=== PATIENT | male | born 1950 | race Caucasian/White ===

== ENCOUNTER 2018-06-01 13:49 | Inpatient (IN) ==
[2018-06-01] MEDS ORDERED: hydrOXYzine pamoate 25 MG CAPSULE PO ONE (14:28)
--- NOTE | 2018-06-01 14:38 | Emergency Department Note ---
Disposition Clinical Impression: Cellulitis Qualifiers: Site of cellulitis: unspecified site Qualified Code(s): L03.90 - Cellulitis, unspecified Disposition: Admitted As Inpatient Condition: Good Referrals: Dhaval Pichardo DO [Primary Care Provider] - Forms: ED Satisfaction Letter Skin/Abscess/FB HPI Chief complaint: ED Skin/Abscess/Foreign Body Stated complaint: "bite to chest" Time Seen by Provider: 06/01/18 14:04 Source: patient Mode of arrival: private vehicle Limitations: no limitations Nursing Notes Reviewed: Yes Vital Signs Reviewed: Yes HPI Narrative: 67-year-old male history of diabetes who presents to the ER with a chief complaint of concern for mastoiditis. Patient states on May 21 he was bitten by an insect. States that it looked okay the next day but then started to become red. He was started on Bactrim by his primary care provider and is currently on day 9. He states that it continued to worsen in its appearance so they added Keflex 3 days ago. He states today he again saw his primary care provider who referred him to the emergency department due to concern for worsening cellulitis. He reports compliance with his antibiotics during this time. No fevers but he does report that he has been breaking out in a sweat after taking Tylenol. No nausea vomiting. No other complaints. Pt Subjective Complaint: insect bite/sting Onset (ago): week(s) Location: chest Improves with: none Worsens with: none Context: witnessed insect bite Associated symptoms: Reports: chills. Denies: fever, nausea, vomiting Treatments prior to arrival: antibiotic Allergies Allergy/AdvReac Type Severity Reaction Status Date / Time No Known Allergies Allergy Unverified 12/26/15 07:37 All systems ED: reviewed and negative except as stated. Constitutional: Reports: chills. Denies: fever Gastrointestinal: Denies: nausea, vomiting Integumentary: Reports: rash, pruritus Past Medical History - Past Medical History Attestation: Yes The following information was validated with the patient. Source: patient Medical history: Reports: diabetes, hypertension, kidney stones, other Surgical history: Reports: other Psychiatric history: Reports: no psych history - Social History Smoking Status: Former smoker Smokeless Tobacco Status: No Alcohol use: Reports: occasionally Drug use: Reports: none Physical Exam - General Limitations: no limitations General appearance: alert, in no apparent distress - Head Head exam: atraumatic, normocephalic - Eye Eye exam: Present: normal appearance - ENT ENT exam: normal exam - Neck Neck exam: Present: normal inspection - Chest Chest inspection: Present: normal inspection, symmetric chest wall rise, other ( Right chest wall tenderness as well as a well demarcated erythematous area over the right breast. Blanchable. Warm to touch. No expressible discharge.) - Respiratory Respiratory exam: Present: normal lung sounds bilaterally - Cardiovascular Cardiovascular exam: Present: regular rate, normal rhythm, normal heart sounds - Extremities Exam Extremities exam: Present: normal inspection, full ROM - Expanded Upper Extremity Exam Shoulder exam: Present: normal inspection, full ROM Arm exam: Present: normal inspection, full ROM Elbow exam: Present: normal inspection, full ROM Forearm/Wrist exam: Present: normal inspection, full ROM Hand exam: Present: normal inspection, full ROM - Expanded Lower Extremity Exam Hip/Pelvis exam: Present: normal inspection, full ROM Upper leg exam: Present: normal inspection, full ROM Knee exam: Present: normal inspection, full ROM Lower leg exam: Present: normal inspection, full ROM Ankle exam: Present: normal inspection, full ROM Foot/toe exam: Present: normal inspection, full ROM - Skin Skin exam: Present: erythema Course Course Narrative: Patient seen and examined. Vital signs reviewed. Plan for basic labs, Atarax for pruritus and reevaluation. - Reevaluation(s) Reevaluation #1: Discussed findings with the patient. Agreeable with admission. Vancomycin ordered for cellulitis. Vital Signs Temperature 97.4 F L 06/01/18 13:51 Pulse Rate 76 06/01/18 13:51 Respiratory Rate 20 06/01/18 13:51 Blood Pressure 137/94 06/01/18 13:51 O2 Sat by Pulse Oximetry 96 06/01/18 13:51 Temperature 97.4 F L 06/01/18 13:51 Pulse Rate 76 06/01/18 13:51 Respiratory Rate 20 06/01/18 13:51 Blood Pressure 137/94 06/01/18 13:51 O2 Sat by Pulse Oximetry 96 06/01/18 13:51 Oxygen Delivery Oxygen Delivery Room Air Skin/Abscess/Foreign Body - MDM Narrative Medical decision making narrative: 67-year-old male with cellulitis of the right breast. Started on May 21 after a bug bite. He is afebrile here. Labs reviewed with no acute derangements. Failed outpatient therapy. Admission with vancomycin for worsening cellulitis. - Lab Data Lab results reviewed: Yes I reviewed the patient's lab results. Result diagrams: 06/01/18 14:37 06/01/18 14:37 Lab Results 06/01/18 06/01/18 Range/Units 14:37 14:37 WBC 6.6 (4.3-11.1) K/mcL RBC 5.15 (4.19-5.50) M/mcL Hgb 15.0 (12.9-16.9) g/dL Hct 44.5 (37.5-50.1) % MCV 86.4 (83.0-100.0) fL MCH 29.1 (28.0-33.3) pg MCHC 33.7 (31.6-35.5) g/dL RDW 13.1 (11.5-14.5) % Plt Count 235 (140-400) K/mcL MPV 11.3 (9.4-12.4) fL Immature Gran % 0.5 (0-4) % Seg Neutrophils % 63.5 % Lymphocytes % 24.8 % Monocytes % 8.6 % Eosinophils % 2.0 % Basophils % 0.6 % Neutrophils # 4.2 (1.6-8.9) K/mcL Lymphocytes # 1.6 (0.6-4.6) K/mcL Monocytes # 0.6 (0.0-1.3) K/mcL Eosinophils # 0.1 (0.0-0.6) K/mcL Basophils # 0.0 (0.0-0.2) K/mcL Sodium 137 (136-145) mEq/L Potassium 4.1 (3.5-5.1) mEq/L Chloride 104 (98-107) mEq/L Carbon Dioxide 22 L (23-29) mEq/L BUN 19 (8-23) mg/dL Creatinine 1.20 (0.70-1.30) mg/dL Est GFR ( Amer) > 60 (> 60) Est GFR (Non-Af Amer) > 60 (> 60) BUN/Creatinine Ratio 16 (6-26) Glucose 128 H (70-105) mg/dL Calculated Osmolality 288 (280-300) Calcium 9.6 (8.6-10.3) mg/dL S.B.A.R. - S.B.A.R. Situation: Demographics, MOA Background: Presenting Complaint, Relevant PMH, Meds, & Allergies Assessment: Course and respsone to treatment, Exam Concerns, Patient/Family Expectation, Pertinant Lab Results Recommendation: Barrier(s) to disposition, Recommendation based on pending studies, treatments, or consults S.B.A.RTyler Report Given to: Dr. Karl Neal Repor Time: 15:26
--- NOTE | 2018-06-01 14:43 | Emergency Department Note ---
Disposition Clinical Impression: Cellulitis Disposition: Admitted As Inpatient Condition: Good Referrals: Dhaval Pichardo DO [Primary Care Provider] - Forms: ED Satisfaction Letter General Adult HPI - General Chief complaint: ED Skin/Abscess/Foreign Body Stated complaint: "bite to chest" Time Seen by Provider: 06/01/18 14:04 Source: patient Mode of arrival: private vehicle Limitations: no limitations Nursing Notes Reviewed: Yes Vital Signs Reviewed: Yes - History of Present Illness Pain Scale: 0 - Related Data Allergies Allergy/AdvReac Type Severity Reaction Status Date / Time No Known Allergies Allergy Unverified 12/26/15 07:37 Constitutional: Reports: chills. Denies: fever Gastrointestinal: Denies: nausea, vomiting Integumentary: Reports: rash, pruritus Past Medical History - Past Medical History Medical history: Reports: diabetes, hypertension, kidney stones, other Surgical history: Reports: other Psychiatric history: Reports: no psych history - Social History Smoking Status: Former smoker Smokeless Tobacco Status: No Alcohol use: Reports: occasionally Drug use: Reports: none Physical Exam - General Limitations: no limitations General appearance: alert, in no apparent distress Course Vital Signs Temperature 97.4 F L 06/01/18 13:51 Pulse Rate 76 06/01/18 13:51 Respiratory Rate 20 06/01/18 13:51 Blood Pressure 137/94 06/01/18 13:51 O2 Sat by Pulse Oximetry 96 06/01/18 13:51 Temperature 97.4 F L 06/01/18 13:51 Pulse Rate 76 06/01/18 13:51 Respiratory Rate 20 06/01/18 13:51 Blood Pressure 137/94 06/01/18 13:51 O2 Sat by Pulse Oximetry 96 06/01/18 13:51 Oxygen Delivery Oxygen Delivery Room Air Medical Decision Making - [facility] Narrative Medical decision making narrative: 1537 hrs. started him on vancomycin. Question whether this is inflammatory or if this is infectious. His white count, he does not have a fever. He has been on to get antibiotics and this is not getting better. Think it prudent to given bring him in the hospital this time put him on antibiotics and then also do something to help control the itch. Hospitalist is in agreement with this plan as is the patient. - Lab Data Result diagrams: 06/01/18 14:37 07/05/18 14:37 Lab Results 06/01/18 06/01/18 Range/Units 14:37 14:37 WBC 6.6 (4.3-11.1) K/mcL RBC 5.15 (4.19-5.50) M/mcL Hgb 15.0 (12.9-16.9) g/dL Hct 44.5 (37.5-50.1) % MCV 86.4 (83.0-100.0) fL MCH 29.1 (28.0-33.3) pg MCHC 33.7 (31.6-35.5) g/dL RDW 13.1 (11.5-14.5) % Plt Count 235 (140-400) K/mcL MPV 11.3 (9.4-12.4) fL Immature Gran % 0.5 (0-4) % Seg Neutrophils % 63.5 % Lymphocytes % 24.8 % Monocytes % 8.6 % Eosinophils % 2.0 % Basophils % 0.6 % Neutrophils # 4.2 (1.6-8.9) K/mcL Lymphocytes # 1.6 (0.6-4.6) K/mcL Monocytes # 0.6 (0.0-1.3) K/mcL Eosinophils # 0.1 (0.0-0.6) K/mcL Basophils # 0.0 (0.0-0.2) K/mcL Sodium 137 (136-145) mEq/L Potassium 4.1 (3.5-5.1) mEq/L Chloride 104 (98-107) mEq/L Carbon Dioxide 22 L (23-29) mEq/L BUN 19 (8-23) mg/dL Creatinine 1.20 (0.70-1.30) mg/dL Est GFR ( Amer) > 60 (> 60) Est GFR (Non-Af Amer) > 60 (> 60) BUN/Creatinine Ratio 16 (6-26) Glucose 128 H (70-105) mg/dL Calculated Osmolality 288 (280-300) Calcium 9.6 (8.6-10.3) mg/dL Attestation Statement - Attestation Attestation: This documentation is done with the assistance of Dragon dictation. Despite efforts made to ensure accuracy, there may be inaccuracies in personnel and payroll technician or spelling and typographical errors. I examined this patient and my medical decision-making was reviewed with the Resident Physician. I agree with the documented findings, disposition and treatment plan as described except to the extent set forth below. Patient seen and evaluated Dr. Bashir and myself, I agree with his evaluation management plan, supervise care the patient stay. Patient had 9 days ago got bit by something he thinks an insect on his right breast. He started having some swelling. They put him on Bactrim he is been on it for 9 days and Keflex for last 3 days and is not getting better. He says it itches a lot is not painful no fevers. This looks inflammatory but because he is diabetic this could be infectious returning his CBC start him on some Atarax and then reassess. He may need admission. He is in agreement with plan.
[2018-06-01 14:47] LABS: Basophils % 0.6 %; Eosinophils # 0.1 K/mcL (0.0-0.6); Hematocrit 44.5 % (37.5-50.1); Immature Granulocytes % 0.5 % (0-4); Lymphocytes # 1.6 K/mcL (0.6-4.6); Lymphocytes % 24.8 %; Mean Corpuscular HGB Conc 33.7 g/dL (31.6-35.5); Mean Corpuscular Hemoglobin 29.1 pg (28.0-33.3); Mean Corpuscular Volume 86.4 fL (83.0-100.0); Mean Platelet Volume 11.3 fL (9.4-12.4); Monocytes # 0.6 K/mcL (0.0-1.3); Monocytes % 8.6 %; Neutrophils # 4.2 K/mcL (1.6-8.9); Platelet Count 235 K/mcL (140-400); Red Blood Count 5.15 M/mcL (4.19-5.50); Red Cell Distribution Width 13.1 % (11.5-14.5); Segmented Neutrophils % 63.5 %
[2018-06-01 15:06] LABS: BUN/Creatinine Ratio 16 (6-26); Blood Urea Nitrogen 19 mg/dL (8-23); Calcium 9.6 mg/dL (8.6-10.3); Carbon Dioxide 22 mEq/L (23-29); Chloride 104 mEq/L (98-107); Glucose 128 mg/dL (70-105); Osmolality,Calculated 288 (280-300); Potassium 4.1 mEq/L (3.5-5.1); Sodium 137 mEq/L (136-145); eGFR For African Americans > 60 (> 60); eGFR For Non-African Americans > 60 (> 60)
[2018-06-01] MEDS ORDERED: Vancomycin 1,750 MG in 0.9 % Sodium Chloride 250 ML IVPB ONE (15:09)
[2018-06-01] MEDS ORDERED: Naloxone 0.4 MG/ML INJ IVP PRN (16:51)
[2018-06-01] MEDS ORDERED: *HR* Dextrose 50 % in Water (Syg) 50 ML SYRINGE IVP PRN (17:00)
[2018-06-01] MEDS ORDERED: D5% in Water 1,000 ML IVC PRN (17:00)
[2018-06-01] MEDS ORDERED: Dextrose Gel 15 GM/37.5 ML TUBE PO PRN ×2 (17:00)
--- NOTE | 2018-06-01 17:58 | Internal Med History&Physical ---
Date of Encounter: 06/01/18 Time of Encounter: 16:00 Internal Medicine - H&P: HPI Chief complaint: Pain/itching/swelling of right breast Admitted From: Emergency Dept Plans for Post Hospital Care: Home History of present illness: Mr. Beth is a 67 year old male w/PMH of diabetes controlled w/oral anti- hyperglycemic medications, HTN, GERD, and kidney stones presents from the ED w/ CC of pain, swelling, and itching of the right breast. Pt. reports he was at a baseball game on May 21 and was bitten by an unknown insect under his shirt. Pt. states he began to have itching and swelling to the area and was placed on PO Bactrim by PCP. Therapy failed and was placed on PO Keflex. Sx worsened. Area marked by PCP shows extension of erythema and edema past original markings. Denies any allergies. Reports sweating and itching after taking Tylenol but denies recent illness, fever, chills, nausea, vomiting, changes in vision, headache, chest pain, shortness of breath, abdominal pain, diarrhea, constipation, numbness, tingling, dizziness, lightheadedness, pre-syncope, or syncope. Past Med Surg Social Fam HX - Past Medical History Source: patient, old records reviewed, obtained from family Medical history: diabetes, GERD, hypertension, kidney stones, other Additional medical history: IBS, BPH, Brights disease age 11 Psychiatric history: no psych history - Past Surgical History Surgical History: other Additional surgical history: lithrotripsy - Social History Smoking Status: Former smoker Packs per day: 2 PPD - Reports quitting in 1983 Smokeless Tobacco Status: No Alcohol use: occasionally Drug use: none Current living situation: Home, With Family Activity Level: Independent ambulation Recent Out of Country Travel Within the Last 8 Weeks: No Exposure or Possible Exposure to Illness During Travel: No - Family History Father Race: Family Member Ethnicity: Non- Living Status: Age at : 67 Cause of : [place] Hx Family Cardiac Disorders: Yes (MO) Hx Family Endocrine Disorder: Yes (DM) Mother Race: Family Member Ethnicity: Non- Living Status: Still Living Hx Family Cardiac Disorders: Yes (HTN) Internal Medicine - H&P: Meds Aspirin Enteric Coated [Aspirin EC] 81 mg PO DAILY 06/01/18 [History] Atenolol [Tenormin] 25 mg PO DAILY 06/01/18 [History] Doxazosin [Cardura] 4 mg PO DAILY 06/01/18 [History] Glimepiride [Amaryl] 4 mg PO DAILY 06/01/18 [History] Metformin HCl [Metformin HCl] 1,000 mg PO DAILY 06/01/18 [History] Omeprazole [PriLOSEC] 40 mg PO DAILY 06/01/18 [History] Potassium Chloride [Klor-Con Sprinkle] 10 meq PO DAILY 06/01/18 [History] Triamterene/Hydrochlorothiazid [Dyazide 37.5-25 Capsule] 1 cap PO DAILY [History] cephALEXin [Keflex] 500 mg PO BID 06/01/18 [History] 3 Allergy/AdvReac Type Severity Reaction Status Date / Time No Known Allergies Allergy Verified 06/01/18 16:26 All Systems PM: A 10-system review of systems was performed and is negative for pertinent findings except as documented above in the HPI. - Constitutional Constitutional: as per HPI, excessive sweating (After taking Tylenol), no chills , no fever(s), no night sweats - EENT Eyes: no change in vision, no discharge, no pain, no photophobia Ears: no ear discharge, no ear pain, no tinnitus Nose, mouth and throat: no dysphagia, no nasal discharge, no neck pain, no sore throat - Breasts Breasts: as per HPI, pain (Right breast), swelling (Right breast) - Cardiovascular Cardiovascular ROS IM: no chest pain, no diaphoresis, no dyspnea, no lightheadedness, no palpitations, no syncope - Respiratory Respiratory: no cough, no dyspnea, no wheezing, no excessive phlegm production - Gastrointestinal Gastrointestinal: no abdominal pain, no diarrhea, no hematemesis, no hematochezia, no melena, no nausea, no vomiting - Genitourinary Genitourinary ROS male: as per HPI - Musculoskeletal Musculoskeletal ROS IM: no numbness, no tingling - Integumentary Integumentary IM: no rash, no unusual bruising - Neurological Neurological ROS: no confusion, no convulsions, no focal weakness, no numbness, no tingling, no tremor(s) - Psychiatric Psychiatric: as per HPI - Endocrine Endocrine IM: as per HPI - Hematologic/Lymphatic Hematologic/Lymphatic: no easy bruising - Allergic/Immunologic Allergic/Immunologic: as per HPI - Constitutional Vitals: Temp Pulse Resp BP Pulse Ox 97.5 F L 70 16 101/70 95 06/01/18 16:32 06/01/18 16:32 06/01/18 16:32 06/01/18 16:32 06/01/18 16:32 General appearance: Present: cooperative, A&O X 3, pleasant, no acute distress, obese, answers questions appropriately - Head Head exam: Present: atraumatic, normocephalic - Eye Eye exam: Present: PERRL, conjuntiva pink, sclera anicteric Pupils: Present: PERRL - ENT ENT exam: Present: normal exam - Neck Neck exam general surgery: Present: normal inspection, supple, trachea midline. Absent: lymphadenopathy - Respiratory Respiratory exam: Present: CTAB. Absent: accessory muscle use, rales, rhonchi, wheezes - Cardiovascular Cardiovascular exam: Present: RRR, +S1, +S2. Absent: diastolic murmur, gallop, rubs, systolic murmur - GI/Abdominal GI/Abdominal exam: Present: normal bowel sounds, soft, no peritoneal signs. Absent: distended, tenderness - Rectal Rectal exam: Present: deferred - Additional comments: exam deferred. - Extremities Exam Extremities exam: Present: warm, radial pulses palpable and symmetrical. Absent : calf tenderness, cyanotic, pedal edema - Back Exam Back exam: Present: normal inspection - Neurological Exam Neurological exam: Present: CN II-XII intact, oriented X3, no focal deficits. Absent: pronater drift, facial droop, speech deficit - Psychiatric Psychiatric exam: Present: normal affect, normal mood - Skin Skin exam: Present: dry, intact Internal Med - H&P Results - Labs CBC & Chem 7: 06/01/18 14:37 06/01/18 14:37 - Assessment and plan (1) Cellulitis Current Visit: Yes Status: Acute Assessment and plan: Acute cellulitis of the right breast. Pt. reports he was at a baseball game on May 21 and was bitten by an unknown insect under his shirt. Pt. states he began to have itching and swelling to the area and was placed on PO Bactrim by PCP. Therapy failed and was placed on PO Keflex. Sx worsened. Area marked by PCP shows extension of erythema and edema past original markings. Pt. denies any allergies. Area is blanchable and warm to touch. No discharge. Stair-step pain medications for pain mgmt. IVP Benadryl 25 mg Q6HR PRN for itching. IVPB Vancomycin w/Pharmacy dosing and Zosyn 3.375 gm Q8HR for infection coverage. Pt. does not currently meet sepsis criteria w/WBC of 6.6, temp of 97.5F, RR of 16, BP of 137/94, SpO2 of 95% on RA. HR 76 on admission. Lactic acid ordered. Pt. discussed w/Dr. Barajas who agrees w/plan of care. Pt. is moderate risk for further morbidity and infection based on current cellulitis w/spreading infection requiring IV abx, failure of OP abx therapy x2, and risk factors. Inpatient. Qualifiers: Site of cellulitis: other site Qualified Code(s): L03.818 - Cellulitis of other sites (2) Itching Current Visit: Yes Status: Acute Assessment and plan: Acute itching and pain of the right breast. Stair-step pain medications for pain mgmt. Benadryl IVP 25 mg Q6HR PRN for itching. (3) Diabetes Current Visit: Yes Status: Chronic Assessment and plan: Hx of chronic diabetes controlled w/oral anti-hyperglycemic medications. Hold patient's glimepiride and metformin and administer low-dose correction insulin sliding scale with hypoglycemic protocol. BG checks before meals at bedtime. A1c in a.m. labs. Qualifiers: Diabetes mellitus type: type 2 Diabetes mellitus bell cleaner insulin use: without bell cleaner use Diabetes mellitus complication status: with unspecified complications Qualified Code(s): E11.8 - Type 2 diabetes mellitus with unspecified complications (4) HTN (hypertension) Current Visit: Yes Status: Chronic Assessment and plan: Hx of chronic HTN. Monitor pt. and VS. Continue pts. Dyazide, Cardura, and atenolol. Qualifiers: Hypertension type: essential hypertension Qualified Code(s): I10 - Essential (primary) hypertension (5) GERD (gastroesophageal reflux disease) Current Visit: Yes Status: Chronic Assessment and plan: Hx of chronic GERD. IVP Zofran 4 mg Q6HR PRN for N/V. Continue pts. PO Prilosec. Qualifiers: Esophagitis presence: esophagitis presence not specified Qualified Code(s) : K21.9 - Gastro-esophageal reflux disease without esophagitis (6) DVT prophylaxis Current Visit: Yes Status: Acute Assessment and plan: Heparin 5,000 units SQ Q8HR for DVT prophylaxis. Monitor pt. for signs of bleeding. - Time Spent With Patient Total time spent is greater than 50% in coordination of care (as documented) at patient's floor/unit and/or counseling patient: Greater than 35 minutes
[2018-06-01] MEDS ORDERED: Ondansetron 4 MG/2 ML VIAL IVP PRN (18:05)
[2018-06-01] MEDS: 0.9 % Sodium Chloride 1,000 ML IVC SCH (19:01)
[2018-06-01] MEDS: Piperacillin/Tazobactam 3.375 GM in 0.9 % Sodium Chloride Mini Bag 100 ML IVPB SCH ×2 (19:06→23:39)
[2018-06-01] MEDS ORDERED: 0.9 % Sodium Chloride 1,000 ML IVC ONE ×2 (19:09→20:33)
[2018-06-01] MEDS: Insulin LISPRO 300 UNITS/3 ML VIAL SQ SCH (21:32)
[2018-06-01] MEDS: *HR* Heparin 5,000 UNIT/ML VIAL SQ SCH (23:39)
[2018-06-02 01:46] LABS: Basophils % 0.4 %; Eosinophils # 0.2 K/mcL (0.0-0.6); Eosinophils % 2.5 %; Hematocrit 39.3 % (37.5-50.1); Immature Granulocytes % 0.4 % (0-4); Lymphocytes # 1.9 K/mcL (0.6-4.6); Mean Corpuscular HGB Conc 33.1 g/dL (31.6-35.5); Mean Corpuscular Hemoglobin 28.7 pg (28.0-33.3); Mean Corpuscular Volume 86.8 fL (83.0-100.0); Mean Platelet Volume 11.1 fL (9.4-12.4); Monocytes # 0.7 K/mcL (0.0-1.3); Monocytes % 9.8 %; Neutrophils # 4.1 K/mcL (1.6-8.9); Platelet Count 213 K/mcL (140-400); Red Blood Count 4.53 M/mcL (4.19-5.50); Red Cell Distribution Width 13.2 % (11.5-14.5); Segmented Neutrophils % 59.9 %
[2018-06-02 02:07] LABS: Alanine Aminotransferase 31 Units/L (7-52); Albumin 3.6 g/dL (3.5-5.7); Albumin/Globulin Ratio 1.5 (1.1-2.2); Alkaline Phosphatase 56 Units/L (34-104); Aspartate Amino Transferase 21 Units/L (13-39); BUN/Creatinine Ratio 13 (6-26); Bilirubin,Total 0.5 mg/dL (0.3-1.0); Blood Urea Nitrogen 16 mg/dL (8-23); Calcium 8.4 mg/dL (8.6-10.3); Carbon Dioxide 21 mEq/L (23-29); Chloride 108 mEq/L (98-107); Chol/HDL Ratio 5.3 (0-4.9); Cholesterol 127 mg/dL (< 200); Globulin 2.4 g/dL (2.4-3.5); Glucose 124 mg/dL (70-105); HDL Cholesterol 24 mg/dL (40-59); LDL Cholesterol,Calculated 72 mg/dL (0-99); Magnesium 1.8 mg/dL (1.6-2.6); Osmolality,Calculated 289 (280-300); Sodium 138 mEq/L (136-145); Triglycerides 155 mg/dL (< 150); eGFR For African Americans > 60 (> 60); eGFR For Non-African Americans 60 (> 60)
[2018-06-02] MEDS: Insulin LISPRO 300 UNITS/3 ML VIAL SQ SCH ×4 (07:36→21:06)
[2018-06-02] MEDS: *HR* Heparin 5,000 UNIT/ML VIAL SQ SCH (07:53)
[2018-06-02] MEDS: Aspirin Enteric Coated 81 MG Tablet PO SCH (07:53)
[2018-06-02] MEDS: 0.9 % Sodium Chloride 1,000 ML IVC SCH ×2 (07:53→21:02)
[2018-06-02] MEDS: Piperacillin/Tazobactam 3.375 GM in 0.9 % Sodium Chloride Mini Bag 100 ML IVPB SCH ×2 (07:54→16:10)
[2018-06-02] MEDS: *HR* Metformin 500 MG TABLET PO SCH (11:54)
[2018-06-02] MEDS: *HR* Glimepiride 4 MG TABLET PO SCH (11:55)
[2018-06-02] MEDS: Ibuprofen 400 MG TABLET PO PRN (16:15)
--- NOTE | 2018-06-02 17:35 | Electrocardiograph Report ---
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
[2018-06-02 18:46] LABS: Estimated Average Glucose 186 mg/dl; Hemoglobin A1C 8.1 %
[2018-06-03] MEDS: Piperacillin/Tazobactam 3.375 GM in 0.9 % Sodium Chloride Mini Bag 100 ML IVPB SCH ×2 (00:25→10:08)
[2018-06-03] MEDS: 0.9 % Sodium Chloride 1,000 ML IVC SCH (04:17)
[2018-06-03 05:27] LABS: Basophils % 0.4 %; Eosinophils # 0.2 K/mcL (0.0-0.6); Eosinophils % 3.8 %; Hematocrit 37.5 % (37.5-50.1); Hemoglobin 12.3 g/dL (12.9-16.9); Immature Granulocytes % 0.2 % (0-4); Lymphocytes # 1.4 K/mcL (0.6-4.6); Lymphocytes % 32.1 %; Mean Corpuscular HGB Conc 32.8 g/dL (31.6-35.5); Mean Corpuscular Hemoglobin 28.3 pg (28.0-33.3); Mean Corpuscular Volume 86.2 fL (83.0-100.0); Mean Platelet Volume 11.3 fL (9.4-12.4); Monocytes # 0.5 K/mcL (0.0-1.3); Monocytes % 10.8 %; Neutrophils # 2.3 K/mcL (1.6-8.9); Platelet Count 211 K/mcL (140-400); Red Blood Count 4.35 M/mcL (4.19-5.50); Red Cell Distribution Width 13.3 % (11.5-14.5); Segmented Neutrophils % 52.7 %
[2018-06-03 05:44] LABS: Alanine Aminotransferase 28 Units/L (7-52); Albumin 3.7 g/dL (3.5-5.7); Albumin/Globulin Ratio 1.6 (1.1-2.2); Alkaline Phosphatase 52 Units/L (34-104); Aspartate Amino Transferase 22 Units/L (13-39); BUN/Creatinine Ratio 13 (6-26); Bilirubin,Total 0.5 mg/dL (0.3-1.0); Blood Urea Nitrogen 13 mg/dL (8-23); Calcium 8.5 mg/dL (8.6-10.3); Carbon Dioxide 20 mEq/L (23-29); Chloride 111 mEq/L (98-107); Globulin 2.3 g/dL (2.4-3.5); Glucose 123 mg/dL (70-105); Osmolality,Calculated 289 (280-300); Potassium 3.8 mEq/L (3.5-5.1); Sodium 139 mEq/L (136-145); eGFR For African Americans > 60 (> 60); eGFR For Non-African Americans > 60 (> 60)
[2018-06-03] MEDS: Insulin LISPRO 300 UNITS/3 ML VIAL SQ SCH ×2 (08:09→12:30)
[2018-06-03] MEDS: *HR* Metformin 500 MG TABLET PO SCH (10:07)
[2018-06-03] MEDS: *HR* Glimepiride 4 MG TABLET PO SCH (10:08)
[2018-06-03] MEDS: Aspirin Enteric Coated 81 MG Tablet PO SCH (10:11)
[2018-06-03] MEDS ORDERED: Aminoglycoside Consult 1 EACH MC ONE (15:15)
[2018-06-03] MEDS: Linezolid 600 MG TABLET PO SCH (16:28)
[2018-06-03] MEDS ORDERED: Linezolid 600 MG TABLET PO SCH (18:00)
--- NOTE | 2018-06-03 23:26 | Internal Med Progress Note ---
Date of Encounter: 06/02/18 Time of Encounter: 19:00 - Assessment and plan (1) Cellulitis Current Visit: Yes Status: Acute Qualifiers: Site of cellulitis: other site Qualified Code(s): L03.818 - Cellulitis of other sites (2) Type 2 diabetes mellitus Current Visit: Yes Status: Acute Qualifiers: Diabetes mellitus correction insulin use: without correction use Diabetes mellitus complication status: without complication Qualified Code(s): E11.9 - Type 2 diabetes mellitus without complications (3) HTN (hypertension) Current Visit: Yes Status: Chronic Qualifiers: Hypertension type: essential hypertension Qualified Code(s): I10 - Essential (primary) hypertension (4) GERD (gastroesophageal reflux disease) Current Visit: Yes Status: Chronic Qualifiers: Esophagitis presence: esophagitis presence not specified Qualified Code(s) : K21.9 - Gastro-esophageal reflux disease without esophagitis - Time Spent With Patient Total time spent is greater than 50% in coordination of care (as documented) at patient's floor/unit and/or counseling patient: 25 - 35 minutes - Subjective Interval history: .. The patient had tells me that the pain in the area of her right breast has decreased some. It is associated with less redness and swelling. Denies difficulty breathing, coughing and wheezing. He has normal bowel movements and urination. OBJECTIVE: .. Skin: There is a big red patch in the area of her right breast. It shows increased consistency. It is tender with palpation. I cannot feel any enlarged lymph nodes in the neighborhood. ENMT: Oral/pharyngeal mucosa is normal in appearance. Eyes: Sclera is white. There is no discharge from eyes. Respiratory: Normal breath sounds; no crackles or wheezes. CV: Heart is regular; no gallop or murmur. GI: Abdomen is soft and not tender. There is no palpable mass or visceromegaly. Neuro: There is no focal deficits. ASSESSMENT AND PLAN: .. Cellulitis of her right breast area. Better on IV vancomycin/IV Zosyn. Type 2 diabetes mellitus. Under fair control. Will continue Amaryl/metformin. Hypertension. Under control. Will continue atenolol and Dyazide. GERD. Under control. We will continue Prilosec. - Constitutional Vitals: Temp Pulse Resp BP Pulse Ox 97.7 F 60 16 146/71 95 06/03/18 19:28 06/03/18 19:28 06/03/18 19:28 06/03/18 19:28 06/03/18 19:28 General appearance: Present: cooperative, A&O X 3, pleasant, no acute distress, obese, answers questions appropriately Internal Medicine: Result - Labs CBC & Chem 7: 06/03/18 04:13 06/03/18 04:13 Labs: Short CBC 06/03/18 Range/Units 04:13 WBC 4.5 (4.3-11.1) K/mcL Hgb 12.3 L (12.9-16.9) g/dL Hct 37.5 (37.5-50.1) % Plt Count 211 (140-400) K/mcL Neutrophils # 2.3 (1.6-8.9) K/mcL BMP 06/03/18 04:13 Sodium 139 Potassium 3.8 Chloride 111 H Carbon Dioxide 20 L BUN 13 Creatinine 0.97 Glucose 123 H Calcium 8.5 L Liver Function 06/03/18 Range/Units 04:13 Total Bilirubin 0.5 (0.3-1.0) mg/dL AST 22 (13-39) Units/L ALT 28 (7-52) Units/L Alkaline Phosphatase 52 (34-104) Units/L Albumin 3.7 (3.5-5.7) g/dL - VTE Documentation of Mechanical Device: Intermittent pneumatic compression device Consult Discharge Plan - Plan Referrals: Dhaval Pichardo DO [Primary Care Provider] -
--- NOTE | 2018-06-03 23:46 | Internal Med Progress Note ---
Date of Encounter: 06/03/18 Time of Encounter: 19:00 - Assessment and plan (1) Cellulitis Current Visit: Yes Status: Acute Qualifiers: Site of cellulitis: other site Qualified Code(s): L03.818 - Cellulitis of other sites (2) Type 2 diabetes mellitus Current Visit: Yes Status: Acute Qualifiers: Diabetes mellitus long-term insulin use: without long-term use Diabetes mellitus complication status: without complication Qualified Code(s): E11.9 - Type 2 diabetes mellitus without complications (3) HTN (hypertension) Current Visit: Yes Status: Chronic Qualifiers: Hypertension type: essential hypertension Qualified Code(s): I10 - Essential (primary) hypertension (4) GERD (gastroesophageal reflux disease) Current Visit: Yes Status: Chronic Qualifiers: Esophagitis presence: esophagitis presence not specified Qualified Code(s) : K21.9 - Gastro-esophageal reflux disease without esophagitis - Time Spent With Patient Total time spent is greater than 50% in coordination of care (as documented) at patient's floor/unit and/or counseling patient: - Subjective Interval history: .. He has significantly less pain and swelling in the area of the right breast. The color changed from right to pink. There is a 38 [address] again. Denies difficulty breathing, coughing and wheezing. He has normal bowel movements and urination. OBJECTIVE: .. Skin: There is a pink red patch in the area of her right breast. There is only mild tenderness in that area. I cannot feel any enlarged lymph nodes in the neighborhood. ENMT: Oral/pharyngeal mucosa is normal in appearance. Eyes: Sclera is white. There is no discharge from eyes. Respiratory: Normal breath sounds; no crackles or wheezes. CV: Heart is regular; no gallop or murmur. GI: Abdomen is soft and not tender. There is no palpable mass or visceromegaly. Neuro: There is no focal deficits. ASSESSMENT AND PLAN: .. Cellulitis of her right breast area. We will substitute IV vancomycin/IV Zosyn with by mouth Zyvox/Augmentin, as we lost IV access. Type 2 diabetes mellitus. Under fair control. Will continue Amaryl/metformin. Hypertension. Under control. Will continue atenolol and Dyazide. GERD. Under control. We will continue Prilosec. Disposition: The date of discharge is tomorrow on Zyvox and Augmentin. - Constitutional Vitals: Temp Pulse Resp BP Pulse Ox 97.7 F 60 16 146/71 95 06/03/18 19:28 06/03/18 19:28 06/03/18 19:28 06/03/18 19:28 06/03/18 19:28 General appearance: Present: cooperative, A&O X 3, pleasant, no acute distress, obese, answers questions appropriately Internal Medicine: Result - Labs CBC & Chem 7: 06/03/18 04:13 06/03/18 04:13 Labs: Short CBC 06/03/18 Range/Units 04:13 WBC 4.5 (4.3-11.1) K/mcL Hgb 12.3 L (12.9-16.9) g/dL Hct 37.5 (37.5-50.1) % Plt Count 211 (140-400) K/mcL Neutrophils # 2.3 (1.6-8.9) K/mcL BMP 06/03/18 04:13 Sodium 139 Potassium 3.8 Chloride 111 H Carbon Dioxide 20 L BUN 13 Creatinine 0.97 Glucose 123 H Calcium 8.5 L Liver Function 06/03/18 Range/Units 04:13 Total Bilirubin 0.5 (0.3-1.0) mg/dL AST 22 (13-39) Units/L ALT 28 (7-52) Units/L Alkaline Phosphatase 52 (34-104) Units/L Albumin 3.7 (3.5-5.7) g/dL - VTE Documentation of Mechanical Device: Intermittent pneumatic compression device Consult Discharge Plan - Plan Referrals: Dhaval Pichardo DO [Primary Care Provider] -
[2018-06-04] MEDS: Linezolid 600 MG TABLET PO SCH (06:09)
[2018-06-04] MEDS: Ibuprofen 400 MG TABLET PO PRN (06:11)
[2018-06-04 07:57] LABS: Basophils % 0.7 %; Eosinophils # 0.1 K/mcL (0.0-0.6); Eosinophils % 2.4 %; Hematocrit 43.6 % (37.5-50.1); Immature Granulocytes % 0.3 % (0-4); Lymphocytes # 1.3 K/mcL (0.6-4.6); Mean Corpuscular Hemoglobin 28.7 pg (28.0-33.3); Mean Platelet Volume 10.8 fL (9.4-12.4); Monocytes # 0.5 K/mcL (0.0-1.3); Monocytes % 8.2 %; Neutrophils # 3.9 K/mcL (1.6-8.9); Platelet Count 230 K/mcL (140-400); Red Blood Count 5.01 M/mcL (4.19-5.50); Red Cell Distribution Width 13.2 % (11.5-14.5); Segmented Neutrophils % 66.4 %
[2018-06-04 07:58] LABS: Hemoglobin 14.4 g/dL (12.9-16.9)
[2018-06-04] MEDS: *HR* Metformin 500 MG TABLET PO SCH (08:09)
[2018-06-04] MEDS: Aspirin Enteric Coated 81 MG Tablet PO SCH (08:09)
[2018-06-04] MEDS: *HR* Glimepiride 4 MG TABLET PO SCH (08:09)
[2018-06-04 08:23] LABS: Alanine Aminotransferase 71 Units/L (7-52); Albumin 4.4 g/dL (3.5-5.7); Albumin/Globulin Ratio 1.6 (1.1-2.2); Alkaline Phosphatase 60 Units/L (34-104); Aspartate Amino Transferase 69 Units/L (13-39); BUN/Creatinine Ratio 13 (6-26); Bilirubin,Total 0.7 mg/dL (0.3-1.0); Blood Urea Nitrogen 12 mg/dL (8-23); Calcium 9.4 mg/dL (8.6-10.3); Carbon Dioxide 26 mEq/L (23-29); Chloride 105 mEq/L (98-107); Globulin 2.8 g/dL (2.4-3.5); Glucose 145 mg/dL (70-105); Osmolality,Calculated 288 (280-300); Potassium 3.9 mEq/L (3.5-5.1); Sodium 138 mEq/L (136-145); Total Protein 7.2 g/dL (6.4-8.9); eGFR For African Americans > 60 (> 60); eGFR For Non-African Americans > 60 (> 60)
[2018-06-04 10:48] VITALS: BP 101/68
--- NOTE | 2018-06-04 14:08 | Discharge Summary ---
Orders not resulted at time of discharge: Pending orders 06/01/18 17:29 Culture,Blood [BC] Stat 06/01/18 18:18 Culture,Blood,Additional [BC] Stat 06/05/18 04:00 Complete Blood Count [HEME] AM 0400 Comprehensive Metabolic Panel AM 0400 06/06/18 04:00 Complete Blood Count [HEME] AM 0400 Comprehensive Metabolic Panel AM 0400 Date of Encounter: 06/04/18 Time of Encounter: 14:02 - Discharge Diagnosis (1) Cellulitis Priority: Primary Status: Acute Qualifiers: Site of cellulitis: other site Qualified Code(s): L03.818 - Cellulitis of other sites (2) Type 2 diabetes mellitus Priority: Secondary Status: Chronic Qualifiers: Diabetes mellitus crime scene specialist insulin use: without crime scene specialist use Diabetes mellitus complication status: without complication Qualified Code(s): E11.9 - Type 2 diabetes mellitus without complications (3) HTN (hypertension) Priority: Secondary Status: Chronic Qualifiers: Hypertension type: essential hypertension Qualified Code(s): I10 - Essential (primary) hypertension (4) GERD (gastroesophageal reflux disease) Priority: Secondary Status: Chronic Qualifiers: Esophagitis presence: esophagitis presence not specified Qualified Code(s) : K21.9 - Gastro-esophageal reflux disease without esophagitis Hospital course: Mr. Beth is a 67 year old male. This patient was admitted to the hospital with redness, swelling and pain developing in the area of her right breast. He got some insect bite on May 21. Then, he was treated with Bactrim and Keflex (the last 3 days). Those treatments failed. He has underlying type 2 diabetes mellitus We started him on IV vancomycin/IV Zosyn. We got blood cultures. They did not get any organisms. The patient got significantly better by the day of discharge. We decided to switch him to oral Zyvox and send him home. Condition at discharge: He has only mild swelling/redness in the area of the right breast. It is not associated with any tenderness. There is no local lymphadenopathy. Denies difficulty breathing. Denies abdominal pain, nausea and vomiting. He has normal urination. He is discharged home. He will continue by mouth Zyvox for the next 7 days. Discharge discussed with: patient, family, nurse - Time Spent with Patient Total time spent providing and/or coordinating discharge services: Greater than 30 minutes (40 minutes) - Discharge Medications Prescriptions: Linezolid [Zyvox] 600 mg PO Q12HR #14 tablet Home Medications: Aspirin Enteric Coated [Aspirin EC] 81 mg PO DAILY 06/01/18 [History] Atenolol [Tenormin] 25 mg PO DAILY 06/01/18 [History] Doxazosin [Cardura] 4 mg PO DAILY 06/01/18 [History] Glimepiride [Amaryl] 4 mg PO DAILY 06/01/18 [History] Metformin HCl 1,000 mg PO DAILY 06/01/18 [History] Omeprazole [PriLOSEC] 40 mg PO DAILY 06/01/18 [History] Potassium Chloride [Klor-Con Sprinkle] 10 meq PO DAILY 06/01/18 [History] Triamterene/Hydrochlorothiazid [Dyazide 37.5-25 Capsule] 1 cap PO DAILY [History] Linezolid [Zyvox] 600 mg PO Q12HR #14 tablet 06/04/18 [Rx] Allergies/Adverse Reactions: 3 Allergy/AdvReac Type Severity Reaction Status Date / Time No Known Allergies Allergy Verified 06/01/18 16:26 Date of admission: 06/01/18 15:41 Primary care physician: Dhaval Pichardo DO Discharging clinician: Esvin Serna Anticipated date of discharge: 06/04/18 - Constitutional Vitals: Temp Pulse Resp BP Pulse Ox 97.5 F L 63 14 101/68 96 06/04/18 10:45 06/04/18 10:45 06/04/18 10:45 06/04/18 10:45 06/04/18 10:45 General appearance: Present: cooperative, A&O X 3, pleasant, no acute distress, obese, answers questions appropriately - Respiratory Respiratory exam: Present: CTAB. Absent: accessory muscle use, rales, rhonchi, wheezes - Cardiovascular Cardiovascular exam: Present: RRR, +S1, +S2. Absent: diastolic murmur, gallop, rubs, systolic murmur - GI/Abdominal GI/Abdominal exam: Present: normal bowel sounds, soft, no peritoneal signs. Absent: distended, tenderness - Patient Status Disposition: Home, Self-Care Condition: Good Functional capacity at discharge: independent ambulation Overall status at discharge: patient is progressing back to baseline - Discharge Instructions Instructions: Cellulitis (DC), Diabetes Mellitus Type 2 in Adults (DC), Chronic Hypertension (DC) Follow Up With: Dhaval Pichardo DO [Primary Care Provider] - - Diet and Activity Activity: resume usual activities as tolerated Diet: low fat, low cholesterol - VTE Reasons for not Prescribing Prophylaxis: Treatment not Indicated - Low risk for VTE Documentation of Mechanical Device: Intermittent pneumatic compression device
== END 2018-06-04 15:16 | disposition home or self-care (01) | DRG 603 ==
LOC: EMEROO 13:49 → 3ANU 15:41 → SUATTDRO 15:41 → 3ANU 16:13
PROVIDERS: ADMIT Internal Medicine Nephrology; ATTEND Internal Medicine

== ENCOUNTER 2022-02-03 10:11 | Observation (INO) ==
[2022-02-03 10:48] LABS: Basophils % 0.5 %; Eosinophils # 0.2 K/mcL (0.0-0.6); Eosinophils % 2.4 %; Hematocrit 47.3 % (37.5-50.1); Hemoglobin 15.4 g/dL (12.9-16.9); Immature Granulocytes % 0.3 % (0-4); Lymphocytes # 1.2 K/mcL (0.6-4.6); Lymphocytes % 18.3 %; Mean Corpuscular HGB Conc 32.6 g/dL (31.6-35.5); Mean Corpuscular Hemoglobin 28.6 pg (28.0-33.3); Mean Corpuscular Volume 87.8 fL (83.0-100.0); Mean Platelet Volume 10.7 fL (9.4-12.4); Monocytes # 0.4 K/mcL (0.0-1.3); Monocytes % 6.1 %; Neutrophils # 4.6 K/mcL (1.6-8.9); Platelet Count 210 K/mcL (140-400); Red Blood Count 5.39 M/mcL (4.19-5.50); Red Cell Distribution Width 14.2 % (11.5-14.5); Segmented Neutrophils % 72.4 %; White Blood Count 6.4 K/mcL (4.3-11.1)
[2022-02-03 10:56] LABS: INR 2.1; Prothrombin Time 22.9 Seconds (9.4-12.1)
[2022-02-03 10:58] LABS: Activated Partial Thrombo Time 45.4 Seconds (26.0-36.0)
[2022-02-03 11:10] LABS: BUN/Creatinine Ratio 20 (6-26); Blood Urea Nitrogen 16 mg/dL (8-23); Calcium 9.1 mg/dL (8.6-10.3); Carbon Dioxide 22 mEq/L (23-29); Chloride 104 mEq/L (98-107); Glucose 151 mg/dL (70-105); Osmolality,Calculated 288 (280-300); Potassium 3.7 mEq/L (3.5-5.1); Sodium 137 mEq/L (136-145); Troponin I < 0.03 ng/mL (< 0.04); eGFR For African Americans > 60 (> 60); eGFR For Non-African Americans > 60 (> 60)
[2022-02-03] MEDS ORDERED: Aspirin 325 MG TABLET PO ONE (11:19)
[2022-02-03] MEDS ORDERED: Melatonin 3 MG TABLET PO PRN (11:34)
[2022-02-03] MEDS ORDERED: Ondansetron ODT 4 MG TAB.RAPDIS SL PRN (11:34)
[2022-02-03] MEDS ORDERED: Acetaminophen 325 MG TABLET PO PRN (11:34)
[2022-02-03] MEDS ORDERED: Naloxone 0.4 MG/ML INJ IVP PRN (11:34)
[2022-02-03] MEDS ORDERED: Perflutren Lipid Microsphere 1.3 ML in 0.9 % Sodium Chloride 8.7 ML IVP PRN (12:50)
[2022-02-03] MEDS ORDERED: Nitroglycerin 0.4 MG TAB.SUBL SL PRN (12:53)
[2022-02-03] MEDS ORDERED: VISINE TEARS DROPS 15 ML BOTH EYES PRN (12:53)
[2022-02-03] MEDS ORDERED: Dextrose 4 GM Chewable Tablets PO PRN ×2 (15:55)
[2022-02-03] MEDS ORDERED: *HR* Dextrose 50 % in Water (Syg) 50 ML SYRINGE IVP PRN (15:55)
[2022-02-03] MEDS ORDERED: D5% in Water 1,000 ML IVC PRN (15:55)
[2022-02-03] MEDS ORDERED: *HR* Rivaroxaban 10 MG TABLET PO SCH (17:00)
[2022-02-03] MEDS: Insulin LISPRO 300 UNITS/3 ML VIAL SUBQ SCH (17:25)
[2022-02-03] MEDS ORDERED: atenoloL 25 MG TABLET PO SCH (18:00)
[2022-02-03] MEDS ORDERED: Insulin LISPRO 300 UNITS/3 ML VIAL SUBQ SCH (21:00)
[2022-02-04] MEDS ORDERED: Regadenoson 0.4 MG/5 ML SYRINGE IVP ONE (06:13)
[2022-02-04 06:41] VITALS: TEMP 97.6
[2022-02-04 06:58] LABS: Basophils % 0.5 %; Eosinophils # 0.3 K/mcL (0.0-0.6); Eosinophils % 3.8 %; Hematocrit 48.1 % (37.5-50.1); Hemoglobin 15.4 g/dL (12.9-16.9); Immature Granulocytes % 0.2 % (0-4); Lymphocytes # 1.5 K/mcL (0.6-4.6); Mean Corpuscular Hemoglobin 28.4 pg (28.0-33.3); Mean Corpuscular Volume 88.6 fL (83.0-100.0); Mean Platelet Volume 11.4 fL (9.4-12.4); Monocytes # 0.6 K/mcL (0.0-1.3); Neutrophils # 4.3 K/mcL (1.6-8.9); Platelet Count 203 K/mcL (140-400); Red Blood Count 5.43 M/mcL (4.19-5.50); Red Cell Distribution Width 14.2 % (11.5-14.5); Segmented Neutrophils % 64.5 %; White Blood Count 6.7 K/mcL (4.3-11.1)
[2022-02-04 07:17] LABS: BUN/Creatinine Ratio 19 (6-26); Blood Urea Nitrogen 15 mg/dL (8-23); Calcium 9.1 mg/dL (8.6-10.3); Carbon Dioxide 26 mEq/L (23-29); Chloride 102 mEq/L (98-107); Chol/HDL Ratio 4.2 (0-4.9); Cholesterol 146 mg/dL (< 200); Glucose 102 mg/dL (70-105); HDL Cholesterol 35 mg/dL (40-59); LDL Cholesterol,Calculated 81 mg/dL (< 100); Osmolality,Calculated 287 (280-300); Potassium 3.6 mEq/L (3.5-5.1); Sodium 138 mEq/L (136-145); Triglycerides 150 mg/dL (< 150); eGFR For African Americans > 60 (> 60); eGFR For Non-African Americans > 60 (> 60)
[2022-02-04] MEDS: Insulin LISPRO 300 UNITS/3 ML VIAL SUBQ SCH ×2 (07:47→11:21)
[2022-02-04 10:16] LABS: Estimated Average Glucose 137 mg/dl; Hemoglobin A1C 6.4 %
[2022-02-04 11:03] VITALS: BP 109/73; PULSE 77; O2SAT 94
== END 2022-02-04 14:49 | disposition home or self-care (01) ==
LOC: 3BNU 10:11 → EMEROOARM 10:11 → SUATTDRO 11:54 → 3BNU 15:42
PROVIDERS: ADMIT Internal Medicine; ATTEND Internal Medicine